=== PATIENT | male | born 1960 ===

== ENCOUNTER 2017-11-23 18:10 | Emergency (ER) | payer OTHER ==
[~2017-11-23] VITALS: Ht 180.3 cm; Wt 133.4 kg
[2017-11-23] MEDS ORDERED: Norco 5-325 Ta1 EACH PO (22:58)
== END 2017-11-23 23:51 | disposition home or self-care (01) ==
LOC: ER 18:10
DX: S42.201A Unspecified fracture of upper end of right humerus, initial encounter for closed fracture (principal); F10.10 Alcohol abuse, uncomplicated; E66.01 Morbid (severe) obesity due to excess calories; F17.200 Nicotine dependence, unspecified, uncomplicated; Z68.41 Body mass index [BMI] 40.0-44.9, adult; W01.0XXA Fall on same level from slipping, tripping and stumbling without subsequent striking against object, initial encounter; Y92.410 Unspecified street and highway as the place of occurrence of the external cause
CPT/HCPCS: 23675; 73030; 96374; 96376; 99152; 99284; J1170; J7030